=== PATIENT | female | born 1955 | race Two or more races ===

== ENCOUNTER 2019-01-09 08:45 | Inpatient (IN) | payer OTHER ==
[~2019-01-09] VITALS: Ht 154.9 cm; Wt 68.0 kg
[2019-01-09] MEDS ORDERED: LIPITOR40 MG PO (11:37)
[2019-01-09] MEDS ORDERED: CLONAZEPAM0.5 MG PO (11:37)
[2019-01-09] MEDS ORDERED: ZOLOFT100 MG PO (11:37)
[2019-01-09] MEDS ORDERED: PROVENTIL HFA6.7 GM IH (11:38)
[2019-01-09] MEDS ORDERED: ANTIVERT PO (11:38)
[2019-01-09] MEDS ORDERED: SYMBICORT 16010.2 GM IH (11:38)
[2019-01-09] MEDS ORDERED: B-12500 MCG PO (11:40)
[2019-01-09] MEDS ORDERED: VITAMIN D35000 UNIT PO (11:40)
[2019-01-09] MEDS ORDERED: [UNRECOGNIZED DRUG - OTHER] (11:40)
[2019-01-12] MEDS ORDERED: FLONASE16 GM NASAL (14:07)
[2019-01-12] MEDS ORDERED: MECLIZINE HCL25 MG PO (14:08)
== END 2019-01-12 10:00 | disposition home or self-care (01) | DRG 741 ==
LOC: O/R 01-11 06:00 → CIR.AMB 01-11 07:00 → OB/GYN 01-11 08:30 → SURH 01-11 08:30 → O/R 01-11 08:30 → EDSTATUS 01-11 08:45 → SURH 01-11 08:45 → OB/GYN 01-11 15:57 → O/R 01-11 15:57 → SURH 01-11 17:30 → CIR.AMB 01-12 08:00 → O/R 01-12 10:00 → OB/GYN 01-12 19:14
PROVIDERS: ADMIT Obstetrics & Gynecology Gynecologic Oncology
PROC: 0UT24ZZ Resection of Bilateral Ovaries, Percutaneous Endoscopic Approach (ICD-10-PCS; 2019-01-11)
PROC: 0UT74ZZ Resection of Bilateral Fallopian Tubes, Percutaneous Endoscopic Approach (ICD-10-PCS; 2019-01-11)
PROC: 0UT94ZZ Resection of Uterus, Percutaneous Endoscopic Approach (ICD-10-PCS; principal; 2019-01-11 17:30)
DX: C54.1 Malignant neoplasm of endometrium (principal)